=== PATIENT | male | born 1955 | race Caucasian/White ===

== ENCOUNTER 2018-01-29 07:42 | Outpatient (CLI) | payer BC ==
--- NOTE | 2018-01-29 08:36 | ULT ---
SONOGRAM ABDOMEN COMPLETE: History: Intermittent abdominal pain. FINDINGS: Echogenic debris and small echogenic foci are present within the gallbladder lumen. There is no gallb ladder wall thickening or pericholecystic fluid. Gallbladder is distended, up to 10.9 cm. Common duct is 0.3 cm. Liver is heterogeneous and hyperechoic. No intrahepatic biliary dilatation. No free fluid. Spleen is 13.6 cm. Cyst arising from the left kidney measures up to 4.8 cm. The right kidney and visualized por tions of the abdominal aorta, IVC, and pancreas have a normal sonographic appearance. IMPRESSION: 1. Cholelithiasis. Dilatation of the gallbladder is noted. In the absence of tenderness over the gall bladder fossa, it is nonspecific. Clinical correlation regarding other signs and symptoms of acute ch olecystitis is required. 2. Hepatosteatosis. POS: [facility]
== END 2018-01-29 07:43 | disposition home or self-care (01) ==
LOC: ULT 07:42
PROVIDERS: ATTEND Family Medicine
DX: R10.11 Right upper quadrant pain (principal); K80.20 Calculus of gallbladder without cholecystitis without obstruction; K76.0 Fatty (change of) liver, not elsewhere classified; K82.8 Other specified diseases of gallbladder
CPT/HCPCS: 76700

== ENCOUNTER 2018-02-10 12:29 | Outpatient (CLI) | payer BC ==
[2018-02-10 14:20] LABS: #Eosinphils 0.2 thou/uL (0.0-0.7); #Lymphocytes 1.6 thou/uL (1.20-3.40); #Monocytes 0.6 thou/uL (0.11-0.59); %Basophils 0.2 % (0.0-1.0); %Eosinophils 3.2 % (0.0-10.0); %Lymphocytes 25.2 % (21.0-51.0); %Monocytes 9.1 % (0.0-10.0); %Neutrophils 62.3 % (42.0-75.0); Hemoglobin 16.3 g/dL (14.0-18.0); Mean Corpuscular HGB CONC 35.3 g/dL (32.0-36.0); Mean Corpuscular Hemoglobin 33.4 pg (27.0-31.0); Mean Corpuscular Volume 94.7 fl (80.0-94.0); Mean Platelet Volume 8.8 fL (7.4-10.4); Platelet Count 142 thou/uL (130-400); RBC Distribution Width 12.1 % (11.5-14.5); Red Blood Cell (RBC) Count 4.89 mill/uL (4.70-6.10); White Blood Cell (WBC) Count 6.4 thou/uL (4.8-10.8)
[2018-02-10 14:52] LABS: Anion Gap 7 mmol/L (10-20); BUN (Urea Nitrogen) 16 mg/dL (8.4-25.7); Calc. Creatinine Clearance 0 mL/min (70-130); Carbon Dioxide 31 mmol/L (22-29); Chloride 105 mmol/L (98-107); Estimated GFR-MDRD 66; Glucose 69 mg/dL (70-105); Sodium 139 mmol/L (136-145)
--- NOTE | 2018-02-10 21:37 | EKG ---
Test Reason : Blood Pressure : / mmHG Vent. Rate : 047 BPM Atrial Rate : 047 BPM P-R Int : 174 ms QRS Dur : 096 ms QT Int : 450 ms P-R-T Axes : 056 058 042 degrees QTc Int : 398 ms Marked sinus bradycardia Incomplete right bundle branch block Nonspecific T wave abnormality Abnormal ECG No previous ECGs available Confirmed by Jacinto NEVAREZ ([id number]) on 02/10/2018 9:37:25 PM Referred By: MYRNA Confirmed By:Jacinto NEVAREZ
== END 2018-02-10 12:30 | disposition home or self-care (01) ==
LOC: LABBT 12:29
PROVIDERS: ATTEND Surgery
DX: Z01.818 Encounter for other preprocedural examination (principal); K80.20 Calculus of gallbladder without cholecystitis without obstruction; K42.9 Umbilical hernia without obstruction or gangrene
CPT/HCPCS: 80048; 85025; 93005; 93010

== ENCOUNTER 2018-02-12 08:27 | Inpatient (IN) | payer BC ==
[2018-02-12] MEDS ORDERED: CEFAZOLIN/Water 2 GM/20 ML SYRINGE ONE (09:35)
[2018-02-12] MEDS ORDERED: Fentanyl 100 MCG/2 ML VIAL ONE ×2 (09:57→17:10)
[2018-02-12] MEDS ORDERED: Midazolam HCl 2 mg/2 ml Vial ONE (09:57)
[2018-02-12] MEDS ORDERED: Bupivacaine/Epinephrine 0.25% 30 ML VIAL ONE (09:59)
[2018-02-12] MEDS ORDERED: HYDROmorphone 0.5 MG/0.5 ML SYRINGE ONE (11:00)
[2018-02-12 11:35] LABS: Albumin 4.3 g/dL (3.5-5.0); Bilirubin, Total 0.9 mg/dL (0.2-1.2); Protein, Total 6.7 g/dL (6.0-8.3)
[2018-02-12] MEDS ORDERED: Iothalamate Meglumine 60% 50 ML VIAL FS ONE (11:38)
[2018-02-12] MEDS ORDERED: Ondansetron HCl/PF 4 MG/2 ML Vial ONE (13:08)
[2018-02-12] MEDS ORDERED: Promethazine HCl 25 MG/ML VIAL ONE ×2 (14:32→17:02)
--- NOTE | 2018-02-12 16:55 | PDOC.OP ---
Operative Note - Operative Note Operative Note: PROCEDURE: Laparoscopic cholecystectomy with intraoperative cholangiogram SURGEON: Anusha Harris M.D. DATE OF PROCEDURE: 02/12/2018 PREOPERATIVE DIAGNOSIS: Cholelithiasis, umbilical hernia POSTOPERATIVE DIAGNOSIS: Cholelithiasis and choledocholithiasis, umbilical hernia HISTORY: Patient with intermittent right upper quadrant pain and fatty food intolerance with gallstones and sludge found on ultrasound. He was also incidentally noted to have an umbilical hernia. Recommendation was made to proceed with laparoscopic cholecystectomy and umbilical hernia repair. FINDINGS: Extremely dilated and distended gallbladder which had to be aspirated with extremely thick bile removed. Serpentine lower gallbladder with no stones palpated in the neck. Cholangiogram performed to define anatomy showed normal anatomy but partially obstructing lucency in the distal common bile duct. 2 cm umbilical hernia containing preperitoneal fat only. PROCEDURE IN DETAIL: After informed consent was obtained and appropriate preoperative antibiotics were administered, the patient was taken to the operating room and placed in the supine position and general endotracheal anesthesia was administered. The stomach was decompressed with an OG tube and the abdomen was prepped and draped in standard sterile fashion. Local anesthesia was infused to the skin and subcutaneous tissues at the umbilical level. A transverse skin incision was made. Dissection was carried down to the umbilical hernia which was dissected free circumferentially and found to contain preperitoneal fat only. The fascia was elevated and a Veress needle was placed through the fascial defect into the abdominal cavity without difficulty. Opening pressure was less than 5 and carbon dioxide gas easily insufflated to an intra-abdominal pressure of 15, which the patient tolerated well. The Veress needle was withdrawn and a Kimball port advanced under direct vision. The abdominal cavity was carefully examined. There was no evidence of Veress needle or of trocar injury. Local anesthesia was infused to the skin and subcutaneous tissues at the epigastric, right upper quadrant, and right lateral abdominal sites and trocars were placed under direct vision of the laparoscope. The fundus of the gallbladder was too taut to grasp and retract so the gallbladder was aspirated with return of about 5 mL's of very thick sludge and bile. No additional bile could be removed by aspiration. The fundus was then grasped and retracted superiorly. The infundibulum was grasped and retracted laterally. The serosa was stripped inferiorly at the level of the neck of the gallbladder exposing the cystic artery which appeared to be tethering the neck of the gallbladder in a serpentine manner making dissection difficult. The artery was clipped and divided between clips and the neck of the gallbladder dissected free distally until it began to narrow. The gallbladder appeared clinically obstructed but no stones were felt in the neck the gallbladder. It was felt that this area was likely the cystic duct but the decision was made to perform a cholangiogram to verify that it was the cystic duct and not still part of the gallbladder and to exclude obstruction of the cystic duct or common duct since no stones were palpable in the neck of the gallbladder. The cystic duct was clipped at the level of the neck of the gallbladder. An incision was made in the cystic duct inferior to the clip and the cystic duct was palpated with no stones palpable. Very thick bile and sludge bile was seen to flow from the cystic duct incision. A cholangiogram catheter was introduced and placed into the cystic duct and secured with a clamp. A cholangiogram was obtained which showed the catheter were was in the cystic duct with spiral valves visible. There was an adequate length of cystic duct. There was normal filling of the common bile duct with sluggish flow of contrast into the duodenum and a well defined circular lucency in the distal common bile duct worrisome for partially obstructing stone. There was normal retrograde flow into the common hepatic duct beyond the level of the bifurcation without filling defects. Grant, was administered and allowed to circulate for 3 minutes and the catheter was flushed with saline. A second cholangiogram was obtained and this showed even less passage of contrast into the duodenum and the same lucency in the distal common bile duct. Dr. Cuellar of gastroenterology was consulted intraoperatively but was not available for immediate ERCP so the decision was made to proceed with laparoscopic cholecystectomy with plan for ERCP the following day. The cholangiogram catheter was removed and the cystic duct clipped below the incision in the cystic duct. The cystic duct was divided between these clips and the previously placed clip. The gallbladder was then dissected free of the gallbladder bed using hook electrocautery. Prior to complete removal of the gallbladder from the gallbladder bed, the area of the cystic duct and artery stumps was examined. The clips were in good position completely across these structures and there was no bleeding and no leakage of bile. The gallbladder was then placed into an EndoCatch bag and drawn out through the umbilical incision. The trocar was replaced and the operative site easily irrigated to clear. The epigastric, right upper quadrant and right lateral abdominal trocars were removed and hemostasis verified. Carbon dioxide gas was allowed to desufflate through the umbilical trocar which was then removed. The umbilical incision was closed with interrupted [id number] Vicryl sutures with excellent technical result. The subcutaneous tissues were reapproximated with 3- 0 Monocryl suture and the skin incision closed with 4-0 Monocryl suture. The other skin incisions were closed with 4-0 subcuticular Monocryl sutures and Dermabond dressings were placed. Once the Dermabond was dry a pressure dressing was placed in the umbilical incision. The patient was extubated and taken to the recovery room in good condition. There were no complications. ESTIMATED BLOOD LOSS: Minimal. SPECIMEN : Gallbladder and contents.
[2018-02-12] MEDS ORDERED: Metoclopramide HCl 10 MG/2 ML VIAL ONE (17:21)
--- NOTE | 2018-02-12 19:12 | RAD ---
CHOLANGIOGRAM IN SURGERY: 02/12/18 COMPARISON: Abdominal ultrasound 01/29/18. HISTORY: Cholelithiasis. FINDINGS/IMPRESSION: Multiple limited intraoperative fluoroscopic views were submitted from a cholangiogram taken in surge ry. Contrast is seen within the cystic duct and common bile duct. There may be contrast also seen wit hin the gallbladder with possible filling defects which could represent gallstones. No filling defect s are seen within the common bile duct or cystic duct. Spillage is seen in the duodenum. No biliary d ilatation is present. POS: [facility]
[2018-02-12] MEDS ORDERED: Morphine 4 MG/ML VIAL SLOW IVP PRN ×3 (19:52→19:53)
[2018-02-12] MEDS ORDERED: Ondansetron HCl/PF 4 MG/2 ML Vial SLOW IVP PRN (19:57)
[2018-02-12] MEDS ORDERED: HYDROcodone/Acetaminophen 7.5/325 mg Tablet PO PRN ×2 (19:57→19:58)
[2018-02-12] MEDS ORDERED: traMADol HCl 50 MG TAB PO PRN (19:58)
[2018-02-12] MEDS: Famotidine 40 MG/4 ML VIAL SLOW IVP SCH (20:42)
[2018-02-12 21:57] VITALS: BMI 26.6
[2018-02-12] MEDS: traMADol HCl 50 MG TAB PO PRN (22:13)
--- NOTE | 2018-02-13 00:50 | CON ---
DATE OF CONSULTATION: 02/12/2018 REQUESTING PHYSICIAN: Dr. Harris. REASON FOR CONSULTATION: Positive intraoperative cholangiogram. HISTORY OF PRESENT ILLNESS: Mike Martin is a 62-year-old gentleman, who is being admitted to the hosp ital postoperatively after laparoscopic cholecystectomy with positive intraoperative cholangiogram ea rlier today. He has a past medical history of hypertension, hypothyroidism and multiple orthopedic s urgeries. He has had intermittent right upper quadrant pain and fatty food intolerance for a matter of weeks, but recently worsening. He was evaluated by Dr. Harris and found to have gallstones per a bdominal ultrasound a couple of weeks ago with normal LFTs as recently as 2 days ago. He was also fo und to have an umbilical hernia and so the plan was to have an umbilical hernia repair and laparoscop ic cholecystectomy today. The patient went to the operating room today with intraoperative findings of extremely dilated and distended gallbladder, which had to be aspirated and extremely thick bile re moved. An intraoperative cholangiogram was performed and this demonstrated normal anatomy, but a par tially obstructing lucency in the distal common bile duct. The patient is currently recurring from s urgery in the PACU. He is feeling a bit nauseated, but otherwise doing okay. He is hemodynamically stable. He has no complaints at this time. PAST MEDICAL HISTORY: Hypertension, hypothyroidism, GERD, knee surgery, back surgery, shoulder surge ry, cholecystectomy earlier today. ALLERGIES: NIACIN. OUTPATIENT MEDICATIONS: Synthroid, fenofibrate, omeprazole 20 mg daily, benazepril. SOCIAL HISTORY: No smoking, alcohol, or drug use. FAMILY HISTORY: Noncontributory. REVIEW OF SYSTEMS: Full review of systems including constitutional, head, eyes, ears, nose, throat, GI, , cardiovascular, respiratory, musculoskeletal, and neurologic systems is negative except as no ramses in the HPI. PHYSICAL EXAMINATION: VITAL SIGNS: Pulse 60, blood pressure 132/74, 100% oxygen saturation on room air. GENERAL: A 62-year-old man, sitting up in the bed comfortably, in no acute distress. SKIN: No jaundice, no rash visible or palpable. EYES: No scleral icterus. Extraocular movements are intact. ENT: Mucous membranes moist, no oral lesions. LYMPH: No submandibular or supraclavicular lymphadenopathy. THYROID: Nontender to palpation. HEART: Regular rate and rhythm. LUNGS: Clear to auscultation bilaterally. ABDOMEN: Mild distention from the laparoscopy earlier today. Surgical incisions. Incision sites lo ok good. Diffuse tenderness to palpation, but no guarding, rebound tenderness. EXTREMITIES: No peripheral edema. VESSELS: Radial pulses 2+ bilaterally. NEUROLOGICAL: Cranial nerves II-XII intact bilaterally. No focal deficits. LABORATORY STUDIES: Last LFTs were from 2 days ago were normal with total bilirubin 0.9, alkaline ph osphatase 78, AST 28, ALT 37, albumin 4.3. ASSESSMENT AND PLAN: Choledocholithiasis, demonstrated on intraoperative cholangiogram during succes sful laparoscopic cholecystectomy earlier today. I discussed with the patient that he has a retained stone in the common bile duct demonstrated on imaging, and that ERCP is indicated to clear the commo n bile duct and try to avoid potential future complications and ongoing symptoms. I had a long discu ssion about ERCP with the patient and his including the benefits and potential risks of the proc edure including pancreatitis or bleeding. They express understanding and desire to proceed. We will plan for ERCP tomorrow. Thank you for the consultation. Please call any time with questions or concerns.
[2018-02-13] MEDS: traMADol HCl 50 MG TAB PO PRN (02:31)
[2018-02-13 05:58] LABS: #Lymphocytes 0.8 thou/uL (1.20-3.40); %Basophils 0.3 % (0.0-1.0); %Eosinophils 0.2 % (0.0-10.0); %Lymphocytes 5.6 % (21.0-51.0); %Monocytes 7.2 % (0.0-10.0); %Neutrophils 86.7 % (42.0-75.0); Hemoglobin 15.6 g/dL (14.0-18.0); Mean Corpuscular HGB CONC 35.6 g/dL (32.0-36.0); Mean Corpuscular Hemoglobin 33.6 pg (27.0-31.0); Mean Corpuscular Volume 94.4 fl (80.0-94.0); Mean Platelet Volume 8.2 fL (7.4-10.4); Platelet Count 147 thou/uL (130-400); RBC Distribution Width 12.1 % (11.5-14.5); Red Blood Cell (RBC) Count 4.64 mill/uL (4.70-6.10); White Blood Cell (WBC) Count 13.8 thou/uL (4.8-10.8)
[2018-02-13 06:04] LABS: INR-International Normal Ratio 1.1; PTT 29.6 SEC (22.9-36.1); Prothrombin Time 14.7 SEC (12.0-14.7)
[2018-02-13 06:27] LABS: ALT (SGPT) 303 U/L (8-55); AST (SGOT) 279 U/L (5-34); Alkaline Phosphatase 79 U/L (40-150); Anion Gap 12 mmol/L (10-20); BUN (Urea Nitrogen) 18 mg/dL (8.4-25.7); Bilirubin, Total 2.9 mg/dL (0.2-1.2); Calc. Creatinine Clearance 80 mL/min (70-130); Calcium 9.5 mg/dL (7.8-10.44); Carbon Dioxide 24 mmol/L (22-29); Chloride 106 mmol/L (98-107); Estimated GFR-MDRD 57; Globulin 2.3 g/dL (2.4-3.5); Glucose 121 mg/dL (70-105); Lipase 14 U/L (8-78); Potassium 4.2 mmol/L (3.5-5.1); Protein, Total 6.3 g/dL (6.0-8.3); Sodium 138 mmol/L (136-145)
[2018-02-13] MEDS ORDERED: Scopolamine 1.5 mg/72 hour Patch ONE (09:51)
[2018-02-13] MEDS ORDERED: Fentanyl 250 MCG/5 ML VIAL ONE (09:58)
[2018-02-13] MEDS ORDERED: Midazolam HCl 2 mg/2 ml Vial ONE (09:58)
[2018-02-13] MEDS: Famotidine 40 MG/4 ML VIAL SLOW IVP SCH (10:42)
[2018-02-13] MEDS ORDERED: Indomethacin 50 MG SUPP ONE (10:50)
[2018-02-13] MEDS ORDERED: Iothalamate Meglumine 60% 50 ML VIAL FS ONE (10:50)
--- NOTE | 2018-02-13 13:52 | RAD ---
ERCP: INDICATIONS: Choledocholithiasis. COMPARISON: Intraoperative cholangiogram dated 02/12/2018 at 11:03 a.m. FLUOROSCOPIC TIME: 24 seconds. TOTAL EXPOSURE: 5.43 mGy. FINDINGS: There are surgical clips on the initial images, consistent with the patient's recent cholecystectomy. The ERCP probe is projected on the left in the first image, in the second stage of the duodenum. T he subsequent image demonstrates canalization of the ampulla, with a guide wire advancing to the leve l of the right main hepatic bile duct. There is some contrast present within portions of the hepatic duct and common bile duct, without evidence of extravasation. The third submitted images demonstrat e catheter placement and retrograde opacification of the mid to proximal common bile duct, main hepat ic duct, and the proximal aspects of the right and left main hepatic ducts, without a visible filling defect. The final submitted image demonstrates opacification seen within the biliary system, down t o the level of the distal common bile duct. There is some mild irregularity noted at the level of th e ampulla without the visible oval focal filling defect, as seen on the comparison intraoperative cho langiogram, to suspect residual stone. IMPRESSION: Endoscope retrograde cholangiopancreatography with removal of a distal common bile duct stone. POS: [facility]
--- NOTE | 2018-02-13 13:58 | OP ---
DATE OF PROCEDURE: 02/13/2018 SURGEON: Allan Schuler M.D. PREOPERATIVE DIAGNOSES: 1. Choledocholithiasis on intraoperative cholangiogram. 2. Increased liver function tests. No signs of pancreatitis. POSTOPERATIVE DIAGNOSES: Choledocholithiasis, status post sphincterotomy, removal of common bile jaison t stone. ANESTHESIA: General endotracheal anesthesia. The patient was given Indocin suppository and 2 liters of normal saline to help prevent post-ERCP pancreatitis. RECOMMENDATIONS: If the patient is doing well later today he can go home. PROCEDURE IN DETAIL: After the patient was informed of risks, benefits, possible complications of en doscopy and ERCP including perforation, bleeding, reaction to medication, aspiration and pancreatitis , informed consent was obtained. The patient brought to endoscopy suite where he was intubated and t hen placed in the prone position on the fluoroscopy table. Team Coordinator film was obtained, showed clips in the right upper quadrant. The side-viewing duodenoscope was advanced through the esophagus, stomach, second and third portion of duodenum. The ampulla was brought into view. A small stone was seen to be peaking out through the ampulla and cannulation was obtained freely with a sphincterotome. A sph incterotomy was made over a guidewire and a large gush of dark bile was noted. A small stone came ou t. We swept the duct 2 times and more stone debris came out. Occlusion cholangiogram at the termina tion of the procedure was normal. The scope was removed. The patient tolerated the procedure well, no complications.
[2018-02-13 14:46] VITALS: BP 159/82; TEMP 97.5
== END 2018-02-13 16:45 | disposition home or self-care (01) | DRG 419 ==
LOC: SDC 08:27 → SURG A 13:50
PROVIDERS: ADMIT Surgery; ATTEND Surgery
PROC: 0FT44ZZ Resection of Gallbladder, Percutaneous Endoscopic Approach (ICD-10-PCS; principal; 2018-02-12)
PROC: 0WQF4ZZ Repair Abdominal Wall, Percutaneous Endoscopic Approach (ICD-10-PCS; 2018-02-12)
PROC: BF131ZZ Fluoroscopy of Gallbladder and Bile Ducts using Low Osmolar Contrast (ICD-10-PCS; 2018-02-12)
PROC: 0FJB8ZZ Inspection of Hepatobiliary Duct, Via Natural or Artificial Opening Endoscopic (ICD-10-PCS; 2018-02-13)
DX: K80.20 Calculus of gallbladder without cholecystitis without obstruction (principal); E03.9 Hypothyroidism, unspecified; I10 Essential (primary) hypertension; K21.9 Gastro-esophageal reflux disease without esophagitis; K42.9 Umbilical hernia without obstruction or gangrene
CPT/HCPCS: 36415; 47532; 74330; 80053; 82040; 82247; 83690; 84075; 84155; 84450; 84460; 85025; 85610; 85730; 88304; 96374; J1170; J1610; J1956; J2250; J2405; J2550; J2765; J3010; Q9961

== ENCOUNTER 2023-01-04 10:52 | Outpatient (CLI) | payer MEDICARE, BC | END 2023-01-04 10:53 | disposition home or self-care (01) | LOC: BICMAMMO 10:52 | PROVIDERS: ATTEND Internal Medicine Rheumatology | DX: M81.0 Age-related osteoporosis without current pathological fracture (principal); M85.89 Other specified disorders of bone density and structure, multiple sites | CPT/HCPCS: 77080 ==

== ENCOUNTER 2023-08-05 15:27 | Outpatient (CLI) | payer MEDICARE, BC | END 2023-08-05 15:28 | disposition home or self-care (01) | LOC: BICRAD 15:27 | PROVIDERS: ATTEND Internal Medicine Rheumatology | DX: M25.551 Pain in right hip (principal); M16.0 Bilateral primary osteoarthritis of hip | CPT/HCPCS: 73523 ==

== ENCOUNTER 2024-08-20 10:29 | Outpatient (CLI) | payer MEDICARE, BC ==
[2024-08-20 11:48] LABS: #Basophils 0.07 10x3/uL (0.0-0.2); %Basophils 0.9 % (0.0-1.0); %Eosinophils 1.5 % (0.0-10.0); %Lymphocytes 9.4 % (21.0-51.0); %Monocytes 7.1 % (0.0-10.0); %Neutrophils 80.4 % (42.0-75.0); Hematocrit 44.4 % (42.0-52.0); Hemoglobin 14.8 g/dL (14.0-18.0); Mean Corpuscular HGB CONC 33.3 g/dL (32.0-36.0); Mean Corpuscular Hemoglobin 31.8 pg (27.0-31.0); Mean Corpuscular Volume 95.5 fL (78.0-98.0); Mean Platelet Volume 11.4 fL (7.4-10.4); Platelet Count 170 10x3/uL (130-400); RBC Distribution Width 14.5 % (11.5-14.5); Red Blood Cell (RBC) Count 4.65 mill/uL (4.70-6.10)
[2024-08-20 11:58] LABS: Bacteria/HPF None Seen HPF (None Seen); Bilirubin Negative (Negative); Blood, Urine Negative (Negative); Clarity Clear (Clear); Glucose, Urine (Dipstick) Normal (Negative); Ketone, Urine Negative (Negative); Leukocyte Negative Leu/uL (Negative); Nitrite Negative (Negative); Protein, Urine (Dipstick) Negative (Neg-Trace); RBC/HPF 0-3 HPF (0-3); Specific Gravity, Urine 1.011 (1.002-1.036); Squamous Epithelial 0-3 HPF (0-3); Urobilinogen Normal mg/dL (Less than 2); WBC/HPF 0-3 HPF (0-3); pH, Urine 6.5 (5.0-9.0)
[2024-08-20 11:59] LABS: INR-International Normal Ratio 1.1; PTT 32.4 sec (22.9-36.1); Prothrombin Time 14.1 sec (12.0-14.7)
[2024-08-20 12:03] LABS: Anion Gap 9 mmol/L (10-20); BUN (Urea Nitrogen) 17 mg/dL (8.4-25.7); Calc. Creatinine Clearance 0 mL/min (70-130); Calcium 10.1 mg/dL (7.8-10.44); Carbon Dioxide 26 mmol/L (23-31); Chloride 108 mmol/L (98-107); Estimated GFR 77; Glucose 102 mg/dL (80-115); Potassium 3.7 mmol/L (3.5-5.1); Sodium 139 mmol/L (136-145)
== END 2024-08-20 10:30 | disposition home or self-care (01) ==
LOC: LABBT 10:29
PROVIDERS: ATTEND Urology
DX: Z01.818 Encounter for other preprocedural examination (principal); R00.1 Bradycardia, unspecified
CPT/HCPCS: 80048; 81001; 85025; 85610; 85730; 87086; 93005; 93010

== ENCOUNTER 2024-09-03 07:11 | Day surgery (SDC) | payer MEDICARE, BC ==
[2024-08-20 10:52] VITALS: BMI 26.4
[2024-09-03] MEDS ORDERED: Midazolam HCl 2 mg/2 ml Vial ONE ×2 (07:58→09:54)
[2024-09-03] MEDS ORDERED: PROPOFOL 20 ML ONE (07:58)
[2024-09-03] MEDS ORDERED: fentaNYL PF 100 MCG/2 ML SYRINGE ONE (07:59)
[2024-09-03] MEDS ORDERED: Rocuronium Bromide 10 MG/ML (10ML VIAL) ONE (08:00)
[2024-09-03] MEDS ORDERED: Dexamethasone 4 mg/ml Vial ONE (08:00)
[2024-09-03] MEDS ORDERED: Ondansetron PF 4 MG/2 ML Vial ONE (08:00)
[2024-09-03] MEDS ORDERED: Lidocaine 1% PF 5 ML VIAL ONE (08:00)
[2024-09-03] MEDS ORDERED: Ketorolac Tromethamine 30 MG (1 mL) VIAL ONE (08:42)
[2024-09-03] MEDS ORDERED: Bupivacaine 0.25% HCL 30 ML VIAL ONE (09:10)
[2024-09-03] MEDS ORDERED: CEFAZOLIN 2 GM VIAL ONE (09:19)
[2024-09-03] MEDS ORDERED: ePHEDrine Sulfate 50 MG/10 ML VIAL ONE (09:41)
[2024-09-03] MEDS ORDERED: fentaNYL 50 mcg/mL 1 mL Vial ONE (09:54)
== END 2024-09-03 13:57 | disposition home or self-care (01) ==
LOC: SDC 07:11
PROVIDERS: ATTEND Urology
PROC: 0VB70ZZ Excision of Left Tunica Vaginalis, Open Approach (ICD-10-PCS; principal; 2024-09-03)
DX: N43.1 Infected hydrocele (principal); N45.1 Epididymitis; I12.9 Hypertensive chronic kidney disease with stage 1 through stage 4 chronic kidney disease, or unspecified chronic kidney disease; N18.9 Chronic kidney disease, unspecified; E78.5 Hyperlipidemia, unspecified; E03.9 Hypothyroidism, unspecified; F41.9 Anxiety disorder, unspecified; Z86.73 Personal history of transient ischemic attack (TIA), and cerebral infarction without residual deficits; Z79.899 Other long term (current) drug therapy; Z88.8 Allergy status to other drugs, medicaments and biological substances
CPT/HCPCS: 55040; J0665; J1100; J1885; J2250; J2405; J2704; J3010; 88302; 88304

== ENCOUNTER 2025-09-17 07:57 | Outpatient (CLI) | payer MEDICARE, BC | END 2025-09-17 07:58 | disposition home or self-care (01) | LOC: BICMAMMO 07:57 | PROVIDERS: ATTEND Internal Medicine Rheumatology | DX: M81.0 Age-related osteoporosis without current pathological fracture (principal); M85.89 Other specified disorders of bone density and structure, multiple sites | CPT/HCPCS: 77080 ==